=== PATIENT | female | born 2000 | race Caucasian/White ===

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

== ENCOUNTER 2021-05-15 12:56 | Emergency (ER) | payer OTHER ==
[2021-05-15 13:49] LABS: Urine Blood Negative (Negative); Urine Glucose Negative (Negative); Urine Protein Negative (Negative); Urine Specific Gravity 1.015 (1.005-1.030)
[2021-05-15] MEDS ORDERED: metroNIDAZOLE 500 MG TABLET ONE (15:10)
[2021-05-15] MEDS ORDERED: AZITHROMYCIN 250 MG TAB ONE (15:10)
[2021-05-15] MEDS ORDERED: CEFTRIAXONE 1000 MG/VIAL ONE (15:10)
[2021-05-15] MEDS ORDERED: WATER FOR INJ,STERILE 10 ML ONE (15:10)
[2021-05-15] MEDS ORDERED: LIDOCAINE 1% MPF 2 ML AMPULE ONE (15:10)
[2021-05-15 15:29] LABS: Urine Specific Gravity/Preg 1.015 (1.005-1.030)
--- NOTE | 2021-05-15 15:35 | RAD REPORT ---
EXAM DESCRIPTION: CT - C Spine Wo Con - 05/15/2021 3:22 pm CLINICAL HISTORY: left arm radicular pain Neck pain, radiculopathy COMPARISON: No comparisons FINDINGS: The cervical vertebral body heights and disc spaces are maintained. No evidence of acute cervical spine fracture or subluxation. Prevertebral soft tissues are normal in thickness. IMPRESSION: Negative for acute cervical spine abnormality. All CT scans are performed using dose optimization technique as appropriate and may include automated exposure control or mA/KV adjustment according to patient size.
[2021-05-15] MEDS ORDERED: ONDANSETRON 4 MG (ODT) TAB ONE (17:04)
--- NOTE | 2021-05-15 17:11 | ER ---
Nurse's Notes [facility] Name: Paula Meek Age: 21 yrs Sex: Female : 2000 Arrival Date: 05/15/2021 Time: 12:58 Bed 12 Private MD: Diagnosis: Back pain -STD exposure, unspecified Presentation: 05/15 13:24 Chief complaint: Patient states: my boyfriend has been hospitalized for an infection in ld1 his heart and blood from an STD. I have been having pain in your left shoulder that radiates down my arm, my left thigh and pain in my left groin. My pain began almost a year ago. I am worried I have an STD. Coronavirus screen: At this time, the client does not indicate any symptoms associated with coronavirus-19. Ebola Screen: No symptoms or risks identified at this time. Initial Sepsis Screen: Does the patient meet any 2 criteria? No. Patient's initial sepsis screen is negative. Does the patient have a suspected source of infection? No. Patient's initial sepsis screen is negative. Risk Assessment: Do you want to hurt yourself or someone else? Patient reports no desire to harm self or others. Onset of symptoms was May 15, 2021. 13:24 Method Of Arrival: Ambulatory ld1 13:24 Acuity: KYREE 3 ld1 Triage Assessment: 13:31 General: Appears in no apparent distress. comfortable, Behavior is calm, cooperative, ld1 appropriate for age. Pain: Complains of pain in left femoral area and left arm Pain does not radiate. Pain currently is 8 out of 10 on a pain scale. Quality of pain is described as throbbing, Pain began 1 hour ago. Is continuous. Neuro: Level of Consciousness is awake, alert, obeys commands, Oriented to person, place, time, situation. Cardiovascular: Capillary refill < 3 seconds Patient's skin is warm and dry. Respiratory: Airway is patent Respiratory effort is even, unlabored, Respiratory pattern is regular, symmetrical. GI: Abdomen is flat, non-distended. : Denies burning with urination. 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 - Social history:: Smoking status: Patient denies any tobacco usage or history of. Patient/guardian denies using alcohol. Screenin:38 Abuse screen: Denies threats or abuse. Nutritional screening: No deficits noted. ap3 Tuberculosis screening: No symptoms or risk factors identified. Fall Risk None identified. Assessment: 14:38 General: Appears in no apparent distress. comfortable, Behavior is calm, cooperative, ap3 appropriate for age. Pain: Complains of pain in left arm and pelvis and left femoral area Pain began years ago. Neuro: Level of Consciousness is awake, alert, obeys commands, Oriented to person, place, time, situation, Gait is steady, Speech is normal. Cardiovascular: Patient's skin is warm and dry. Respiratory: Airway is patent Respiratory effort is even, unlabored, Respiratory pattern is regular, symmetrical. : Reports pain in vagina. Vital Signs: 13:24 BP 155 / 107; Pulse 78; Resp 18; Temp 98.7(O); Pulse Ox 99% on R/A; Weight 61.23 kg; ld1 Height 5 ft. 7 in. (170.18 cm); Pain 8/10; 15:19 BP 137 / 99; Pulse 69; Resp 17; Pulse Ox 100% on R/A; ap3 15:43 BP 127 / 86; Pulse 72; Resp 19; Pulse Ox 100% on R/A; ap3 16:28 BP 134 / 96; Pulse 67; Pulse Ox 100% on R/A; ap3 13:24 Body Mass Index 21.14 (61.23 kg, 170.18 cm) ld1 ED Course: 12:58 Patient arrived in ED. ds1 13:27 Triage completed. ld1 13:31 Arm band placed on right wrist. ld1 14:38 Laquita Lowe, DARELL is Primary Nurse. ap3 14:38 Rashawn Oconnor PA is PHCP. [facility] 14:38 Patient has correct armband on for positive identification. Bed in low position. Call ap3 light in reach. Adult w/ patient. Pulse ox on. NIBP on. Door closed. Noise minimized. 14:39 Crescencio Sanchez MD is Attending Physician. [facility] 15:22 C Spine W/O Contrast In Process Unspecified. EDMS 17:20 No provider procedures requiring assistance completed. Patient did not have IV access ap3 during this emergency room visit. Administered Medications: 15:43 Drug: Rocephin (cefTRIAXone) 1 grams Route: IM; Site: right gluteus; ap3 15:43 Drug: AZITHromycin 1 grams Route: PO; ap3 15:43 Drug: Flagyl (metroNIDAZOLE) 2 grams Route: PO; ap3 17:06 Drug: Zofran (Ondansetron) 4 mg Route: PO; ap3 Outcome: 17:10 Discharge ordered by . [facility] 17:20 Discharged to home ambulatory, with family. ap3 17:20 Condition: good 17:20 Discharge instructions given to patient, Instructed on discharge instructions, follow up and referral plans. medication usage, Demonstrated understanding of instructions, follow-up care, medications, Prescriptions given X 1. 17:21 Patient left the ED. ap3 Signatures: Dispatcher [employer] EDKY Crescencio Sanchez MD MD cha Mickail, Joel, PA PA Maddy Bruno ds1 Laquita Lowe RN RN ap3 Katie Caro RN RN ld1 Corrections: (The following items were deleted from the chart) 13:27 13:24 Pulse 78bpm; Resp 18bpm; Pulse Ox 99% RA; Temp 98.7F Oral; 61.23 kg; Height 5 ft. ld1 7 in.; BMI: 21.1; Pain 8/10; ld1
--- NOTE | 2021-05-15 17:11 | EDPHYS ---
Physician Documentation [facility] Name: Paula Meek Age: 21 yrs Sex: Female : 2000 Arrival Date: 05/15/2021 Time: 12:58 Bed 12 Private MD: ED Physician Crescencio Sanchez HPI: 05/15 16:33 This is with no chronic medical conditions presents emerge department with complaints jmm of ongoing left upper back pain which radiates into her left arm neck pain, lower back pain. Patient states the symptoms been ongoing for approximately 1 year. Patient states the main reason she is currently in the ER is to get treatment for gonorrhea. Her boyfriend was recently hospitalized due to a systemic gonorrhea infection.. 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 - Social history:: Smoking status: Patient denies any tobacco usage or history of. Patient/guardian denies using alcohol. ROS: 16:33 Constitutional: Negative for fever, chills, and weight loss, Cardiovascular: Negative jmm for chest pain, palpitations, and edema, Respiratory: Negative for shortness of breath, cough, wheezing, and pleuritic chest pain, Abdomen/GI: Negative for abdominal pain, nausea, vomiting, diarrhea, and constipation. 16:33 Back: Positive for Exam: 17:02 Constitutional: This is a well developed, well nourished patient who is awake, alert, jmm and in no acute distress. Head/Face: atraumatic. Eyes: EOMI, no conjunctival erythema appreciated ENT: Moist Mucus Membranes 17:02 Chest/axilla: Normal chest wall appearance and motion. Cardiovascular: Regular rate and rhythm. No edema appreciated Respiratory: Normal respirations, no respiratory distress appreciated Abdomen/GI: Non distended, soft 17:02 Skin: General appearance color normal 17:02 Neck: C-spine: vertebral tenderness, is not appreciated, ROM/movement: pain, that is mild, with rotation to the left. 17:02 Back: pain, that is mild, of the left scapular area and left subscapular area. 17:02 Musculoskeletal/extremity: ROM: intact in all extremities. 17:02 Skin: Appearance: Color: normal in color. 17:02 Neuro: Orientation: is normal, Mentation: is normal, Memory: is normal. 17:02 Psych: Behavior/mood is pleasant, cooperative. Vital Signs: 13:24 BP 155 / 107; Pulse 78; Resp 18; Temp 98.7(O); Pulse Ox 99% on R/A; Weight 61.23 kg; ld1 Height 5 ft. 7 in. (170.18 cm); Pain 8/10; 15:19 BP 137 / 99; Pulse 69; Resp 17; Pulse Ox 100% on R/A; ap3 15:43 BP 127 / 86; Pulse 72; Resp 19; Pulse Ox 100% on R/A; ap3 16:28 BP 134 / 96; Pulse 67; Pulse Ox 100% on R/A; ap3 13:24 Body Mass Index 21.14 (61.23 kg, 170.18 cm) ld1 MDM: 14:39 Patient medically screened. [facility] 17:09 Data reviewed: vital signs, nurses notes. Counseling: I had a detailed discussion with cindy the patient and/or guardian regarding: the historical points, exam findings, and any diagnostic results supporting the discharge/admit diagnosis, radiology results, the need for outpatient follow up, to return to the emergency department if symptoms worsen or persist or if there are any questions or concerns that arise at home. ED course: Patient is alert and nontoxic in appearance in the ED. I do not suspect a systemic infection. CT of the neck was normal. Patient has had ongoing pain for almost a year now. I do not suspect an acute process. Patient advised follow-up PCP and otherwise given strict return precautions. Patient understood and agrees plan of care.. 05/15 13:49 Order name: Urine Dipstick-Ancillary; Complete Time: 15:04 EDMS 05/15 14:11 Order name: Urine --Ancillary (enter results) bd 05/15 14:11 Order name: Urine --Ancillary; Complete Time: 15:32 EDMS 05/15 15:04 Order name: C Spine W/O Contrast; Complete Time: 15:39 [facility] Administered Medications: 15:43 Drug: Rocephin (cefTRIAXone) 1 grams Route: IM; Site: right gluteus; ap3 15:43 Drug: AZITHromycin 1 grams Route: PO; ap3 15:43 Drug: Flagyl (metroNIDAZOLE) 2 grams Route: PO; ap3 17:06 Drug: Zofran (Ondansetron) 4 mg Route: PO; ap3 Disposition: 23:15 Co-signature as Attending Physician, Crescencio Sanchez MD I agree with the assessment and pj plan of care. Disposition Summary: 05/15/21 17:10 Discharge Ordered Location: Home [facility] Condition: Stable jm Diagnosis - Back pain -STD exposure, unspecified jmm Followup: [facility] - With: Private Physician - When: 2 - 3 days - Reason: Recheck today's complaints, Continuance of care, Re-evaluation by your physician Discharge Instructions: - Discharge Summary Sheet jm - Chronic Back Pain jmm - Gonorrhea [facility] Forms: - Medication Reconciliation Form [facility] - Thank You Letter [facility] - Antibiotic Education [facility] - Prescription Opioid Use [facility] Prescriptions: - Doxycycline Hyclate 100 mg Oral Tablet - take 1 tablet by ORAL route every 12 hours for 14 days; 24 tablet; Refills: 0, [facility] Product Selection Permitted Signatures: Dispatcher [employer] EDCrescencio Guillory MD MD cha Mickail, Joel, PA PA jmm Prokisch, Amanda, RN RN ap3 Katie Caro RN RN ld1
[2021-05-15 17:57] VITALS: TEMP 98.7
[2021-05-15 17:58] VITALS: O2SAT 100
[2021-05-15 18:01] VITALS: BP 134/96
== END 2021-05-15 17:21 | disposition home or self-care (01) ==
LOC: ER 12:56
DX: Z20.2 Contact with and (suspected) exposure to infections with a predominantly sexual mode of transmission (principal)
CPT/HCPCS: 72125; 81003; 81025; 96372; 99284